=== PATIENT | female | born 1950 | race Caucasian/White ===

== ENCOUNTER → 2018-02-02 | Outpatient (CLI) | payer MEDICARE ==
[~2018-02-02] MED LIST: ACID1TAB7 PO; ASPI325T80 PO; CALC1TAB PO; CEFU250T66 PEG; CHLO1CAP PO; CHOL4POW3 PO; CLON1TAB23 PO; DEXL60CA2 PO; DIAZ5TAB PO; DOCU-180 PO; DOCU50CA3 PO; FLAX100016 PO; GABA300C10 PO; IBUP-1223 PO; LORA-445 PO; METH4TAB2 PO; METH750T87 PO; METR500T PO; OXYC-302 PO; OXYC-432 PO; SENN1TAB25 MT; SERT100T PO; TRAZ150T62 PO; [UNRECOGNIZED DRUG - OTHER]; trazodone MT; zoloft
== END | disposition home or self-care (01) ==
LOC: CFH 12:14
PROVIDERS: ATTEND Family Medicine
DX: Z12.31 Encounter for screening mammogram for malignant neoplasm of breast (principal); Z13.820 Encounter for screening for osteoporosis; M85.88 Other specified disorders of bone density and structure, other site; N63.23 Unspecified lump in the left breast, lower outer quadrant
CPT/HCPCS: 77080; 77066

== ENCOUNTER 2020-11-19 12:07 | Outpatient (CLI) | payer MEDICARE ==
[~2020-11-19 12:07] MED LIST changes: -DOCU-180 PO; +DOCU-192 PO; -OXYC-302 PO; -OXYC-432 PO; +OXYC1TAB12 PO; +OXYC1TAB18 PO
== END 2020-11-19 23:59 | disposition home or self-care (01) ==
LOC: CFH 12:07
PROVIDERS: ATTEND Family Medicine
DX: R94.31 Abnormal electrocardiogram [ECG] [EKG] (principal); I20.9 Angina pectoris, unspecified
CPT/HCPCS: 78452; 93017; A9502